=== PATIENT | male | born 1970 | race Two or more races ===

== ENCOUNTER 2016-06-20 16:33 | Emergency (ER) | payer OTHER, MEDICAID ==
[2016-06-20 16:42] VITALS: TEMP 97.5
[2016-06-20] MEDS ORDERED: INSULIN REGULAR HUMAN 100 UNIT/ML IVP ONE (17:25)
[2016-06-20] MEDS ORDERED: NS 1,000 ML IV ONE ×2 (17:25)
[2016-06-20 17:32] LABS: % IMMATURE GRANULYOCYTES 0.2 % (0.0-1.1); ABSOLUTE IMMATURE GRANULOCYTES 0.01 10^3/uL (0.00-0.10); ADD DIFF? NO; ADD MORPH? NO; ADD SCAN? NO; ATYPICAL LYMPHOCYTE FLAG 0 (0-99); FRAGMENT RBC FLAG 0 (0-99); HEMATOCRIT 38.4 % (40.0-51.0); HEMOGLOBIN 13.8 g/dL (13.7-17.5); LEFT SHIFT FLG 0 (0-99); LIPEMIA HEMOLYSIS FLAG 90 (0-99); MEAN CELL HEMOGLOBIN 32.9 pg (27.9-34.1); MEAN CELL HEMOGLOBIN CONCENTR. 35.9 g/dL (32.4-36.7); MEAN CELL VOLUME 91.4 fL (81.5-99.8); PLATELET CLUMPS FLAG 10 (0-99); PLATELET COUNT 180 10^3/uL (150-400); RED CELL DISTRIBUTION WIDTH 11.1 % (11.5-15.2)
[2016-06-20 17:39] LABS: ANION GAP 14 mEq/L (8-16); CALCIUM 9.1 mg/dL (8.5-10.4); CARBON DIOXIDE 27 mEq/l (22-31); CHLORIDE 94 mEq/L (97-110); CREATININE 0.5 mg/dL (0.7-1.3); GLOMERULAR FILTRATION RATE > 60; MAGNESIUM 1.8 mg/dL (1.6-2.3); POTASSIUM 3.3 mEq/L (3.5-5.2); SODIUM 135 mEq/L (134-144)
[2016-06-20 17:42] LABS: GLUCOSE 585 mg/dL (70-100)
[2016-06-20] MEDS ORDERED: POTASSIUM CL 20 MEQ TAB PO ONE (17:48)
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
[2016-06-20 18:23] LABS: COLOR PALE YELLOW; LEUKOCYTE ESTERASE,URINE NEGATIVE (NEGATIVE); NITRITE,URINE NEGATIVE (NEGATIVE)
[2016-06-20 18:29] LABS: RBC,URINE NONE SEEN /hpf (0-3)
[2016-06-20] MEDS ORDERED: POTASSIUM CL 20 MEQ PKT ONE (18:41)
[2016-06-20 18:53] LABS: B-HYDROXYBUTYRATE 0.11 mmol/L (0.02-0.27)
[2016-06-20 19:34] VITALS: BP 107/66; PULSE 95; RESP 16; O2SAT 97
== END 2016-06-20 19:47 | disposition home or self-care (01) ==
DX: E10.65 Type 1 diabetes mellitus with hyperglycemia (principal); I10 Essential (primary) hypertension; F17.200 Nicotine dependence, unspecified, uncomplicated; Z79.84 Long term (current) use of oral hypoglycemic drugs
CPT/HCPCS: 96361; 96374; 99284; J1815; 82947-QW

== ENCOUNTER 2016-07-19 11:53 | Emergency (ER) | payer OTHER, MEDICAID ==
[2016-07-19 12:02] VITALS: TEMP 97.9
[2016-07-19 12:38] LABS: % IMMATURE GRANULYOCYTES 0.1 % (0.0-1.1); ABSOLUTE IMMATURE GRANULOCYTES 0.01 10^3/uL (0.00-0.10); ADD DIFF? NO; ADD MORPH? NO; ADD SCAN? NO; ATYPICAL LYMPHOCYTE FLAG 10 (0-99); FRAGMENT RBC FLAG 0 (0-99); HEMATOCRIT 36.7 % (40.0-51.0); HEMOGLOBIN 12.4 g/dL (13.7-17.5); LEFT SHIFT FLG 0 (0-99); LIPEMIA HEMOLYSIS FLAG 90 (0-99); MEAN CELL HEMOGLOBIN 32.5 pg (27.9-34.1); MEAN CELL HEMOGLOBIN CONCENTR. 33.8 g/dL (32.4-36.7); MEAN CELL VOLUME 96.1 fL (81.5-99.8); MEAN PLATELET VOLUME 11.9 fL (8.7-11.7); PLATELET CLUMPS FLAG 0 (0-99); PLATELET COUNT 194 10^3/uL (150-400); RED BLOOD CELL COUNT 3.82 10^6/uL (4.40-6.38); RED CELL DISTRIBUTION WIDTH 11.4 % (11.5-15.2)
[2016-07-19 12:48] LABS: ANION GAP 10 mEq/L (8-16); CALCIUM 8.9 mg/dL (8.5-10.4); CARBON DIOXIDE 26 mEq/l (22-31); CHLORIDE 99 mEq/L (97-110); CREATININE 0.6 mg/dL (0.7-1.3); GLOMERULAR FILTRATION RATE > 60; GLUCOSE 277 mg/dL (70-100); POTASSIUM 4.2 mEq/L (3.5-5.2); SODIUM 135 mEq/L (134-144)
--- NOTE | 2016-07-19 13:05 | EDPHY ---
H & P Stated Complaint: cough, n/v/d x 2 days, generalized aches Time Seen by Provider: 07/19/16 13:04 HPI/ROS: CHIEF COMPLAINT: Cough, nausea, back pain and myalgias HISTORY OF PRESENT ILLNESS: The patient presents to the ED with a cough, back pain, myalgias and subjective fevers for the past 2 days. The patient has a history of insulin controlled diabetes. The patient denies prior history of asthma or reactive airway disease. He denies recent antibiotic use. The patient reports his blood sugars have been well controlled. The patient denies acute abdominal pain. The patient denies rash, skin erythema or swelling. The patient denies additional acute complaints. The patient does report mild to moderate shortness of breath and a moderate to severe cough. REVIEW OF SYSTEMS: A comprehensive 10 point review of systems is otherwise negative aside from elements mentioned in the history of present illness. Source: Patient Exam Limitations: No limitations - Personal History Current Tetanus/Diphtheria Vaccine: Unsure Current Tetanus Diphtheria and Acellular Pertussis (TDAP): Unsure - Medical/Surgical History Hx Asthma: No Hx Chronic Respiratory Disease: No Hx Diabetes: No Hx Cardiac Disease: Yes Hx Renal Disease: No Hx Cirrhosis: No Hx Alcoholism: No Hx HIV/AIDS: No Hx Splenectomy or Spleen Trauma: No Other PMH: INS dept Diabetes, HTN - Social History Smoking Status: Current every day smoker - Physical Exam Exam: General Appearance: Alert, no distress Eyes: Pupils equal and round no pallor or injection ENT, Mouth: Mucous membranes moist Respiratory: There are no retractions, lungs are clear to auscultation Cardiovascular: Regular rate and rhythm Gastrointestinal: Abdomen is soft and nontender, no masses, bowel sounds normal Neurological: A&O, normal motor function, normal sensory exam, normal cranial nerves Skin: Warm and dry, no rashes Musculoskeletal: Neck is supple nontender Extremities: symmetrical, full range of motion Constitutional: Initial Vital Signs Temperature (C) 36.6 C 07/19/16 11:59 Heart Rate 93 07/19/16 11:59 Respiratory Rate 16 07/19/16 11:59 Blood Pressure 101/61 07/19/16 11:59 O2 Sat (%) 95 07/19/16 11:59 O2 Delivery Mode Room Air Allergies/Adverse Reactions: No Known Allergies Allergy (Unverified 06/20/16 16:36) Home Medications: Medication Instructions Recorded Insulin Aspart Novolog 70/30 06/20/16 Insulin Aspart [novoLOG] 5 unit SC AC #1 vial 06/20/16 Insulin Glargine [Lantus 100 27 units SC DAILY #1 vial 06/20/16 UNITS/ML (*)] Lisinopril 5 mg PO DAILY #30 tablet 06/20/16 Medical Decision Making - Diagnostics Imaging Results: Chest x-ray AP/lateral: Images reviewed by myself, negative for focal infiltrate or other acute abnormality. ED Course/Re-evaluation: The patient presents to the emergency department with an acute flu-like illness for the past 2 days. The patient's rapid flu test is negative. His chest x-ray demonstrates no evidence of pneumonia. His vital signs otherwise stable. The patient is noted to have mild hyperglycemia without evidence of an anion gap acidosis. The patient will be treated with Tamiflu for presumptive influenza, albuterol and given a prescription for pain medications. The patient will be discharged home with customary aftercare instructions and return precautions. The patient was monitored in the emergency department without evidence of significant hypoxemia, tachycardia or vital sign abnormality. The patient will follow up with his regular physician at [facility]. He has been discharged home with customary aftercare instructions and return precautions. Differential Diagnosis: Differential diagnosis considered includes influenza, bronchitis, pneumonia, dehydration, metabolic abnormality, diabetic ketoacidosis - Data Points Laboratory Results: Laboratory Results 07/19/16 12:20 07/19/16 12:20 07/19/16 07/19/16 07/19/16 12:53 12:20 12:20 WBC 8.10 10^3/uL 10^3/uL (3.80-9.50) RBC 3.82 10^6/uL L 10^6/uL (4.40-6.38) Hgb 12.4 g/dL L g/dL (13.7-17.5) Hct 36.7 % L % (40.0-51.0) MCV 96.1 fL fL (81.5-99.8) MCH 32.5 pg pg (27.9-34.1) MCHC 33.8 g/dL g/dL (32.4-36.7) RDW 11.4 % L % (11.5-15.2) Plt Count 194 10^3/uL 10^3/uL (150-400) MPV 11.9 fL H fL (8.7-11.7) Neut % (Auto) 68.5 % % (39.3-74.2) Lymph % (Auto) 21.9 % % (15.0-45.0) [place] % (Auto) 8.4 % % (4.5-13.0) Eos % (Auto) 0.4 % L % (0.6-7.6) Baso % (Auto) 0.7 % % (0.3-1.7) Nucleat RBC Rel Count 0.0 % % (0.0-0.2) Absolute Neuts (auto) 5.55 10^3/uL 10^3/uL (1.70-6.50) Absolute Lymphs (auto) 1.77 10^3/uL 10^3/uL (1.00-3.00) Absolute Monos (auto) 0.68 10^3/uL 10^3/uL (0.30-0.80) Absolute Eos (auto) 0.03 10^3/uL 10^3/uL (0.03-0.40) Absolute Basos (auto) 0.06 10^3/uL 10^3/uL (0.02-0.10) Absolute Nucleated RBC 0.00 10^3/uL 10^3/uL (0-0.01) Immature Gran % 0.1 % % (0.0-1.1) Immature Gran # 0.01 10^3/uL 10^3/uL (0.00-0.10) Sodium 135 mEq/L mEq/L (134-144) Potassium 4.2 mEq/L mEq/L (3.5-5.2) Chloride 99 mEq/L mEq/L (97-110) Carbon Dioxide 26 mEq/l mEq/l (22-31) Anion Gap 10 mEq/L mEq/L (8-16) BUN 4 mg/dL L mg/dL (7-23) Creatinine 0.6 mg/dL L mg/dL (0.7-1.3) Estimated GFR > 60 Glucose 277 mg/dL H mg/dL (70-100) Calcium 8.9 mg/dL mg/dL (8.5-10.4) Influenza A,B Rapid NEGATIVE FOR FLU (NEGATIVE) Departure - Departure Disposition: Home, Routine, Self-Care Clinical Impression: Influenza Condition: Good Instructions: Influenza (ED) Additional Instructions: 1. Please take Tamiflu as directed for possible flu infection. 2. Please use albuterol as needed for cough and shortness of breath. 3. Take Ibuprofen or Motrin 600 mg by mouth three times a day. 4. Please use [place] as needed for severe pain. 5. Please follow up with your primary care provider for a recheck next week. Please return to the ED this weekend for any worsening symptoms, difficulty breathing or other concerns. Referrals: Hyun Samuels MD [Primary Care Provider] - As per Instructions
[2016-07-19 14:19] VITALS: BP 99/65; PULSE 83; RESP 18; O2SAT 94
== END 2016-07-19 14:19 | disposition home or self-care (01) ==
DX: J11.1 Influenza due to unidentified influenza virus with other respiratory manifestations (principal); I10 Essential (primary) hypertension; E11.9 Type 2 diabetes mellitus without complications; F17.200 Nicotine dependence, unspecified, uncomplicated; Z79.4 Long term (current) use of insulin

== ENCOUNTER → 2016-08-20 | Outpatient (CLI) | payer OTHER, MEDICAID | LOC: FIMAGING 08:51 | PROVIDERS: ATTEND Internal Medicine | DX: B18.2 Chronic viral hepatitis C (principal) ==